=== PATIENT | female | born 1990 | race Caucasian/White ===

== ENCOUNTER 2019-02-08 07:17 | Emergency (ER) | payer BC, MEDICAID ==
[~2019-02-08] VITALS: Ht 154.9 cm; Wt 77.1 kg
[2019-02-08 07:17] VITALS: BP_SYST 125
[2019-02-08 08:04] VITALS: BP_SYST 125
== END 2019-02-08 08:03 | disposition home or self-care (01) ==
LOC: SED 07:17
DX: O26.899 Other specified pregnancy related conditions, unspecified trimester (principal); K46.9 Unspecified abdominal hernia without obstruction or gangrene; Z3A.00 Weeks of gestation of pregnancy not specified; Z53.21 Procedure and treatment not carried out due to patient leaving prior to being seen by health care provider
CPT/HCPCS: 99281